=== PATIENT | male | born 1965 | race Caucasian/White ===

== ENCOUNTER 2016-10-29 13:17 | Observation (INO) | payer SELFPAY ==
--- NOTE | ~2016-10-29 | HP ---
History And Physical [id number] [place]. [address] NAME: VALENTE DARLING : 65 STATUS : ADM Sandrita PAT#: [id number] AGE: 51 ADM/REG DATE : 10/29/16 MR#: [id number] REPORT SERV DATE: 10/29/16 DICTATED BY: MATTHEW CARVALHO DATE: 10/29/16 REPORT STATUS : Draft TRANSCRIBED BY: MODJennifer DATE: 10/29/16 DATE OF ADMISSION: 10/29/2016 REASON FOR ADMISSION: Atypical chest pains. HISTORY OF PRESENT ILLNESS: Mr. Darling is a 51-year-old gentleman with a history of syncope of undetermined etiology, hypertension, hyperlipidemia, PVCs, on atenolol, and chronic narcotic use, who presents from [facility] with complaints of syncope as well as nonspecified chest pain. He states that he had been in his usual state of health up until this morning, when he was sitting in his bed and leaned over to tie his shoes. He blacked out at that point in time and woke up several minutes later, per his report. He had no other symptoms. He had some preceding chest pains, however, on his left side of his chest. He does have these every month or so. They do not occur with exertion but instead at random. He otherwise does endorse drinking alcohol approximately one six-pack per week, as well as smoking marijuana and smoking one pack per day of cigarettes. He used to see Dr. Arguelles, however, has not seen him in sometime. He stopped taking his atenolol approximately one month ago, which he states had helped him with previous history of recurrent syncope. He otherwise has no complaints. ALLERGIES: NONE. SOCIAL HISTORY: As above. FAMILY HISTORY: Noncontributory for premature cardiovascular disease. PAST MEDICAL HISTORY: As above. In addition, anxiety and depression. He was treated for this recently with some improvement but self discontinued his medications because he thought they were not helping. He is interested in resuming medicines for this reason. PHYSICAL EXAMINATION: VITAL SIGNS: Blood pressure 151/95, pulse 70 and sinus, afebrile. GENERAL: Stoic/depressed, well developed, well nourished, in no acute distress. NEURO: Awake, alert and oriented x3; no focal deficits, appropriate mood. HEENT: Moist mucous membranes, anicteric sclerae, no nasal discharge. NECK: No JVD, no carotid bruit. LUNGS: Clear to auscultation bilaterally, no wheezes, rales or rhonchi. CV: Regular rhythm, normal S1/S2, no murmurs, rubs or gallops. ABD: Soft, non-tender, non-distended, no rebound or guarding. EXT: No pitting edema, normal distal pulses. SKIN: Warm, dry and intact; no rash. Pertinent test findings are available only from outside hospital from today with hemoglobin 15.6, platelets 284, potassium 4.3, creatinine 1. Troponin less than 0.02. MB fraction 6, CK mildly elevated at 336. EKG with sinus rhythm, early repolarization, ST changes in the anterolateral leads but are unchanged from previous EKG. Otherwise, no acute ischemic changes or evidence of previous infarct. History And Physical [address] [address] NAME: VALENTE DARLING : 65 STATUS : ADM Sandrita PAT#: [id number] AGE: 51 ADM/REG DATE : 10/29/16 MR#: [id number] REPORT SERV DATE: 10/29/16 DICTATED BY: MATTHEW CARVALHO DATE: 10/29/16 REPORT STATUS : Draft TRANSCRIBED BY: DINO DATE: 10/29/16 IMPRESSION AND PLAN: Mr. Darling is a 51-year-old gentleman with a history of hypertension, depression, anxiety as well as recurrent syncope of undetermined etiology, who presents this morning with isolated episode of syncope and some atypical chest pains without remarkable finding thus far. Accordingly, I have the following recommendations: Check cardiac enzymes and trend these. Psychiatry consult for evaluation and treatment of depression and anxiety, as per patient's request. Check an echocardiogram and resume home medications including atenolol in particular which has helped him in the past with syncope of undetermined etiology. Telemetry monitoring. Echocardiogram if not already mentioned, and plan for a nuclear stress test tomorrow morning if he rules out for [place] overnight. VR/DINO Matthew Carvalho MD / [id number] CC: Jude Arguelles Jr., M.D.
--- NOTE | ~2016-10-29 | CN ---
Consultation Report [facility] [address] [place]. [address] NAME: VALENTE MOORE : 65 STATUS : ADM Sandrita PAT#: [id number] AGE: 51 ADM/REG DATE : 10/29/16 MR#: [id number] REPORT SERV DATE: 10/30/16 DICTATED BY: TONY MCDERMOTT DATE: 10/30/16 REPORT STATUS : Draft TRANSCRIBED BY: MODJennifer DATE: 10/30/16 PSYCHIATRIC CONSULTATION DATE OF CONSULTATION: 10/30/2016 I reviewed this patient's medical record. I discussed patient's status with Dr. Marsh. HISTORY OF PRESENT ILLNESS: He was admitted with a syncopal episode and atypical chest pain. I was consulted to address anxiety and depression. PAST PSYCHIATRIC HISTORY: He described recurring bouts of depression all of his adult life. He also has episodes of optimism and increased activity and accomplishment. He also described episodic hypersomnia and insomnia. FAMILY HISTORY: He said there were a number of members in the family with depression and bipolar issues. A nephew recently committed suicide. SOCIAL HISTORY: He described a stable and supportive marriage. He has two children. He works at the [employer] in [place], [place]. MENTAL STATUS: He was pleasant and cooperative in attitude. His mood was dysphoric. He was tearful at times. His affect was full and appropriate. His thinking was logical. He denied having any suicidal intent or plan. He had no delusions. He had no hallucinations. He was oriented to location, date, and persons. DIAGNOSIS: Bipolar II disorder. RECOMMENDATIONS: He should seek outpatient psychiatric care for further evaluation of his mood disorder and treatment of the same. He was agreeable to doing this. I gave him the names and telephone numbers of two local mental health clinics. I will sign off. KIMBERLYN/DINO Tony Mcdermott M.D. / [id number] CC: Jude Arguelles Jr., M.D.
[2016-10-29] MEDS ORDERED: ATEN50 PO (13:34)
[2016-10-29] MEDS ORDERED: LISINOPRIL40 MG PO (13:34)
[2016-10-29 15:22] LABS: BASOPHILS 0.3 %; BASOPHILS ABSOLUTE 0.03 10/3/uL (0.0-0.16); EOSINOPHILS 1.8 %; EOSINOPHILS ABSOLUTE 0.17 10/3/uL (0.0-0.53); HEMOGLOBIN 16.1 g/dL (13.6-17.8); IMMATURE GRANULOCYTES 0.2 %; IMMATURE GRANULOCYTES ABSOLUTE 0.02 10/3/uL (0.0-0.11); LYMPHOCYTES ABSOLUTE 2.52 10/3/uL (0.67-4.30); MEAN CORPUS HGB CONC 34.3 g/dL (32.0-36.0); MEAN CORPUSCULAR HEMOGLOB 30.5 pg (26.0-34.0); MEAN PLATELET VOLUME 9.7 fL (9.2-13.0); MONOCYTES 7.1 %; MONOCYTES ABSOLUTE 0.69 10/3/uL (0.21-1.20); NEUTROPHILS 64.6 %; NEUTROPHILS ABSOLUTE 6.25 10/3/uL (2.02-8.40); PLATELET COUNT 306 10/3/uL (150-400); RBC DISTRIBUTION WIDTH 13.8 % (12.0-16.0); RED CELL COUNT 5.28 10/6/uL (4.7-6.1); WHITE BLOOD CELLS 9.7 10/3/uL (4.5-10.5)
[2016-10-29 15:23] LABS: MANUAL DIFF NO %
[2016-10-29 15:37] LABS: BUN (BLOOD UREA NITROGEN) 19 MG/DL (6-23); CHLORIDE, SERUM 106 MMOL/L (96-112); CK-MB 3.9 NG/ML; CO2 (CARBON DIOXIDE) 28 MMOL/L (24-34); CPK 270 U/L (0-200); CREATININE 0.84 MG/DL (0.70-1.30); GFR AFRICAN AMERICAN 117 ML/MIN (>=60); GFR NON AFRICAN AMERICAN 101 ML/MIN (>=60); GLUCOSE, SERUM 89 MG/DL (60-99); SODIUM, SERUM 142 MMOL/L (135-148); TROPONIN I <0.02 NG/ML (<0.05)
[2016-10-29 23:28] LABS: TROPONIN I <0.02 NG/ML (<0.05)
[2016-10-29 23:29] LABS: CK-MB 2.7 NG/ML; CPK 193 U/L (0-200)
[2016-10-30 07:21] LABS: BASOPHILS 0.1 %; BASOPHILS ABSOLUTE 0.01 10/3/uL (0.0-0.16); EOSINOPHILS 2.1 %; EOSINOPHILS ABSOLUTE 0.17 10/3/uL (0.0-0.53); HEMATOCRIT 46.5 % (40.0-51.0); IMMATURE GRANULOCYTES 0.3 %; IMMATURE GRANULOCYTES ABSOLUTE 0.02 10/3/uL (0.0-0.11); LYMPHOCYTES 29.3 %; LYMPHOCYTES ABSOLUTE 2.33 10/3/uL (0.67-4.30); MANUAL DIFF NO %; MEAN CORPUS HGB CONC 34.4 g/dL (32.0-36.0); MEAN CORPUSCULAR HEMOGLOB 30.3 pg (26.0-34.0); MEAN CORPUSCULAR VOLUME 88.1 fL (80-100); MEAN PLATELET VOLUME 9.3 fL (9.2-13.0); MONOCYTES ABSOLUTE 0.56 10/3/uL (0.21-1.20); NEUTROPHILS 61.2 %; NEUTROPHILS ABSOLUTE 4.86 10/3/uL (2.02-8.40); PLATELET COUNT 295 10/3/uL (150-400); RED CELL COUNT 5.28 10/6/uL (4.7-6.1)
[2016-10-30 07:33] LABS: BUN (BLOOD UREA NITROGEN) 20 MG/DL (6-23); CALCIUM, SERUM 8.9 MG/DL (8.5-10.4); CHLORIDE, SERUM 107 MMOL/L (96-112); CO2 (CARBON DIOXIDE) 25 MMOL/L (24-34); CREATININE 0.76 MG/DL (0.70-1.30); GFR AFRICAN AMERICAN 122 ML/MIN (>=60); GFR NON AFRICAN AMERICAN 106 ML/MIN (>=60); GLUCOSE, SERUM 109 MG/DL (60-99); POTASSIUM, SERUM 3.9 MMOL/L (3.5-5.3); SODIUM, SERUM 138 MMOL/L (135-148)
[2016-10-30 08:30] LABS: TROPONIN I <0.02 NG/ML (<0.05)
[2016-10-30 08:31] LABS: CK-MB 2.3 NG/ML; CPK 164 U/L (0-200)
== END 2016-10-30 13:00 | disposition home or self-care (01) ==
LOC: SSU1 13:17
PROVIDERS: Student in an Organized Health Care Education/Training Program
DX: R55 Syncope and collapse (principal); R07.89 Other chest pain; F41.9 Anxiety disorder, unspecified; F32.9 Major depressive disorder, single episode, unspecified; I10 Essential (primary) hypertension; E78.00 Pure hypercholesterolemia, unspecified; M19.90 Unspecified osteoarthritis, unspecified site
CPT/HCPCS: 80048; 82550; 82553; 84484; 85025; 93005; A9270-GY; C8929; G0378; Q9957